=== PATIENT | female | born 1980 | race Caucasian/White ===

== ENCOUNTER 2017-01-08 20:03 | Emergency (ER) | payer MEDICAID ==
[~2017-01-08] VITALS: Ht 152.4 cm; Wt 73.3 kg
[~2017-01-08 20:03] MED LIST: PRENATAL; PROBIOTIC
[2017-01-08] MEDS ORDERED: SODIUM CHLORIDE 0.9% 1,000 ML IV ONE (22:51)
[2017-01-08 23:14] LABS: BASOPHILS % 0.5 % (0.0-2.0); EOSINOPHILS % 1.6 % (0.0-5.0); HEMATOCRIT. 30.7 % (36.0-48.0); HEMOGLOBIN. 10.3 g/dL (12.0-16.0); LYMPHOCYTES % 22.4 % (20.0-50.0); MEAN CORPUSCULAR HGB CONC 33.5 g/dL (31.0-37.0); MEAN CORPUSCULAR VOLUME 86.4 fL (81.0-99.0); MEAN PLATELET VOLUME 7.7 fl (7.4-10.4); MONOCYTES % 5.2 % (2.0-8.0); NEUTROPHILS % 70.3 % (40.0-76.0); PLATELET 276 x1000/uL (130-400); RED BLOOD CELL COUNT 3.55 mill/uL (4.2-5.4); RED CELL DISTRIBUTION WIDTH 12.6 % (11.6-14.6); WHITE BLOOD COUNT 15.3 x1000/uL (4.5-11.0)
[2017-01-08 23:14] LABS: CLARITY URINE CLEAR (CLEAR); COLOR URINE YELLOW (YELLOW); GLUCOSE URINE NEGATIVE (NEGATIVE); KETONES URINE NEGATIVE (NEGATIVE); LEUKOCYTE ESTERASE URINE 2+ (NEGATIVE); NITRITE URINE NEGATIVE (NEGATIVE); OCCULT BLOOD URINE 1+ (NEGATIVE); PROTEIN URINE NEGATIVE (NEGATIVE); UROBILINOGEN URINE 0.2 E.U./dL (0.2-1.0)
[2017-01-08] MEDS ORDERED: ACETAMINOPHEN 325MG TABLET PO ONE (23:15)
[2017-01-08 23:20] LABS: CHLORIDE 103 mEq/L (98-107); INDEX HEMOLYSI 1 (1-3); INDEX ICTERIC 1 (1-4); INDEX LIPEMIC 1 (1-3)
[2017-01-08 23:25] LABS: ALBUMIN 2.5 g/dL (3.4-5.0); ANION GAP 13; CALCIUM 8.2 mg/dL (8.5-10.1); CARBON DIOXIDE 24 mEq/L (21-32); UREA NITROGEN BLOOD 11 mg/dL (7-21)
[2017-01-08 23:32] LABS: BACTERIA URINE 1+; RBC URINE 0-2 /hpf (0-2); SQUAMOUS EPITHELIAL CELL URINE FEW /lpf (RARE/1+)
[2017-01-08 23:35] LABS: ALANINE AMINOTRANSFERASE 45 IU/L (13-61); eGFR 51 mL/min (>60)
[2017-01-08 23:43] LABS: B-HCG QUANTITATIVE 49593 mIU/mL (<3)
[2017-01-09 02:05] VITALS: BP 107/72
== END 2017-01-09 02:19 | disposition home or self-care (01) ==
LOC: ER 20:03
DX: O23.42 Unspecified infection of urinary tract in pregnancy, second trimester (principal); O46.8X2 Other antepartum hemorrhage, second trimester; Z3A.17 17 weeks gestation of pregnancy; Z88.5 Allergy status to narcotic agent; Z98.890 Other specified postprocedural states
CPT/HCPCS: 36415; 76805; 80053; 81001; 81025; 84702; 85025; 86850; 86900; 86901; 96360; 99285; Z7610; J7030

== ENCOUNTER 2017-01-20 20:22 | Emergency (ER) | payer MEDICAID ==
[~2017-01-20] VITALS: Ht 149.9 cm; Wt 68.5 kg
[2017-01-20] MEDS ORDERED: ACETAMINOPHEN 325MG TABLET PO ONE (22:45)
[2017-01-20] MEDS ORDERED: SODIUM CHLORIDE 0.9% 1,000 ML IV ONE (22:45)
[2017-01-20 23:00] LABS: CLARITY URINE CLEAR (CLEAR); COLOR URINE YELLOW (YELLOW); GLUCOSE URINE NEGATIVE (NEGATIVE); KETONES URINE NEGATIVE (NEGATIVE); LEUKOCYTE ESTERASE URINE TRACE (NEGATIVE); NITRITE URINE NEGATIVE (NEGATIVE); OCCULT BLOOD URINE NEGATIVE (NEGATIVE); PROTEIN URINE NEGATIVE (NEGATIVE); SPECIFIC GRAVITY URINE 1.009 (1.005-1.030); UROBILINOGEN URINE 0.2 E.U./dL (0.2-1.0)
[2017-01-20 23:02] LABS: BASOPHILS % 0.5 % (0.0-2.0); HEMATOCRIT. 30.7 % (36.0-48.0); HEMOGLOBIN. 10.3 g/dL (12.0-16.0); LYMPHOCYTES % 29.8 % (20.0-50.0); MEAN CORPUSCULAR HEMOGLOBIN 29.1 pg (28.0-32.0); MEAN CORPUSCULAR HGB CONC 33.5 g/dL (31.0-37.0); MEAN CORPUSCULAR VOLUME 86.9 fL (81.0-99.0); MEAN PLATELET VOLUME 7.3 fl (7.4-10.4); MONOCYTES % 7.7 % (2.0-8.0); PLATELET 283 x1000/uL (130-400); RED BLOOD CELL COUNT 3.53 mill/uL (4.2-5.4); RED CELL DISTRIBUTION WIDTH 12.7 % (11.6-14.6); WHITE BLOOD COUNT 11.3 x1000/uL (4.5-11.0)
[2017-01-20 23:07] LABS: CHLORIDE 105 mEq/L (98-107); INDEX HEMOLYSI 1 (1-3); INDEX ICTERIC 1 (1-4); INDEX LIPEMIC 1 (1-3)
[2017-01-20 23:08] LABS: CALCIUM 8.5 mg/dL (8.5-10.1)
[2017-01-20 23:11] LABS: ANION GAP 13; CARBON DIOXIDE 25 mEq/L (21-32); UREA NITROGEN BLOOD 8 mg/dL (7-21)
[2017-01-20 23:13] LABS: BACTERIA URINE TRACE; RBC URINE 0-2 /hpf (0-2); SQUAMOUS EPITHELIAL CELL URINE FEW /lpf (RARE/1+); WBC URINE 0-2 /hpf (0-2)
[2017-01-20 23:19] LABS: eGFR > 60 mL/min (>60)
[2017-01-20 23:29] LABS: B-HCG QUANTITATIVE 45736 mIU/mL (<3)
[2017-01-21 01:59] VITALS: BP 125/71
== END 2017-01-21 02:01 | disposition home or self-care (01) ==
LOC: ER 22:28
DX: O20.0 Threatened abortion (principal); Z3A.19 19 weeks gestation of pregnancy; Z88.3 Allergy status to other anti-infective agents; Z88.5 Allergy status to narcotic agent
CPT/HCPCS: 36415; 76805; 80048; 81001; 81025; 84702; 85025; 99285; Z7610; J7030

== ENCOUNTER 2017-02-15 11:10 | Observation (INO) | payer MEDICAID ==
[~2017-02-15] VITALS: Ht 152.4 cm; Wt 71.7 kg
[2017-02-15] MEDS ORDERED: LACTATED RINGERS 1,000 ML IV SCH (11:45)
[2017-02-15] MEDS ORDERED: ACETAMINOPHEN 500MG TABLET PO NR (11:45)
[2017-02-15] MEDS ORDERED: PREN1TAB22 (12:11)
[2017-02-15] MEDS ORDERED: MAGN400T26 (12:11)
[2017-02-15 12:37] LABS: CLARITY URINE CLEAR (CLEAR); COLOR URINE YELLOW (YELLOW); GLUCOSE URINE NEGATIVE (NEGATIVE); KETONES URINE NEGATIVE (NEGATIVE); LEUKOCYTE ESTERASE URINE TRACE (NEGATIVE); NITRITE URINE NEGATIVE (NEGATIVE); OCCULT BLOOD URINE NEGATIVE (NEGATIVE); PROTEIN URINE NEGATIVE (NEGATIVE); UROBILINOGEN URINE 0.2 E.U./dL (0.2-1.0)
[2017-02-15 12:59] LABS: SQUAMOUS EPITHELIAL CELL URINE 3+ /lpf (RARE/1+)
[2017-02-15 13:00] LABS: RBC URINE 0-2 /hpf (0-2)
[2017-02-15 13:01] LABS: BACTERIA URINE TRACE
[2017-02-15] MEDS ORDERED: CITRIC ACID/SODIUM CITRATE SOLN 30ML UDC PO NR (13:15)
[2017-02-15 13:53] LABS: BASOPHILS % 0.3 % (0.0-2.0); HEMATOCRIT. 28.1 % (36.0-48.0); HEMOGLOBIN. 9.5 g/dL (12.0-16.0); LYMPHOCYTES % 20.4 % (20.0-50.0); MEAN CORPUSCULAR HEMOGLOBIN 29.2 pg (28.0-32.0); MEAN CORPUSCULAR HGB CONC 33.8 g/dL (31.0-37.0); MEAN CORPUSCULAR VOLUME 86.4 fL (81.0-99.0); MEAN PLATELET VOLUME 7.9 fl (7.4-10.4); MONOCYTES % 7.2 % (2.0-8.0); NEUTROPHILS % 71.1 % (40.0-76.0); PLATELET 256 x1000/uL (130-400); RED BLOOD CELL COUNT 3.25 mill/uL (4.2-5.4); RED CELL DISTRIBUTION WIDTH 13.5 % (11.6-14.6); WHITE BLOOD COUNT 13.6 x1000/uL (4.5-11.0)
[2017-02-15 14:05] LABS: ALANINE AMINOTRANSFERASE 40 IU/L (13-61); ALBUMIN 2.4 g/dL (3.4-5.0); AMYLASE 107 IU/L (25-115); ANION GAP 12; CALCIUM 8.4 mg/dL (8.5-10.1); CARBON DIOXIDE 28 mEq/L (21-32); CHLORIDE 107 mEq/L (98-107); INDEX HEMOLYSI 1 (1-3); INDEX ICTERIC 1 (1-4); INDEX LIPEMIC 1 (1-3); LIPASE 149 IU/L (73-393); UREA NITROGEN BLOOD 6 mg/dL (7-21); eGFR > 60 mL/min (>60)
== END 2017-02-15 14:40 | disposition home or self-care (01) ==
LOC: L&D 11:10
PROVIDERS: ADMIT Obstetrics & Gynecology; ATTEND Obstetrics & Gynecology
DX: O26.892 Other specified pregnancy related conditions, second trimester (principal); R10.10 Upper abdominal pain, unspecified; Z3A.00 Weeks of gestation of pregnancy not specified
CPT/HCPCS: 36415; 80053; 81001; 82150; 83690; 85025; 99281; G0378; J7120; 96360; 96361

== ENCOUNTER 2017-03-24 14:48 | Observation (INO) | payer MEDICAID ==
[~2017-03-24] VITALS: Ht 152.4 cm; Wt 71.7 kg
[~2017-03-24 14:48] MED LIST changes: +MAGN400T26; +PREN1TAB22
[2017-03-24] MEDS ORDERED: ACETAMINOPHEN 500MG TABLET PO NR (15:30)
[2017-03-24] MEDS ORDERED: DEXT 5%/LR + PITOCIN 20UNITS/L 1,000 ML IV SCH (18:28)
[2017-03-24] MEDS ORDERED: LIDOCAINE HCL 1% 20ML VIAL (Pyxis) INJ INFIL SCH (18:30)
[2017-03-24] MEDS ORDERED: CARBOPROST TROMETHAMINE 250 MCG/ML AMPUL IM PRN (18:30)
[2017-03-24] MEDS ORDERED: ONDANSETRON HCL 4MG/2ML VIAL IV PRN (18:30)
[2017-03-24] MEDS ORDERED: BUTORPHANOL TARTRATE 2 MG/ML VIAL IV PRN (18:30)
[2017-03-24] MEDS ORDERED: METHYLERGONOVINE MALEATE 0.2 MG/ML IM PRN (18:30)
[2017-03-24] MEDS ORDERED: NALOXONE HCL 0.4 MG/ML 1ML VIAL IM PRN (18:30)
[2017-03-24] MEDS ORDERED: BETAMETHASONE ACET/BETAMET 30 MG/5 ML VIAL IM NR ×2 (18:30→19:15)
[2017-03-24] MEDS ORDERED: DEXT 5%/LACTATED RINGERS 1,000 ML IV SCH (19:00)
[2017-03-24 19:21] LABS: CLARITY URINE CLEAR (CLEAR); COLOR URINE YELLOW (YELLOW); GLUCOSE URINE NEGATIVE (NEGATIVE); KETONES URINE NEGATIVE (NEGATIVE); LEUKOCYTE ESTERASE URINE TRACE (NEGATIVE); NITRITE URINE NEGATIVE (NEGATIVE); OCCULT BLOOD URINE TRACE (NEGATIVE); PH URINE 6.5 (4.5-8.0); PROTEIN URINE NEGATIVE (NEGATIVE); SPECIFIC GRAVITY URINE 1.005 (1.005-1.030); UROBILINOGEN URINE 0.2 E.U./dL (0.2-1.0)
[2017-03-24 19:28] LABS: BASOPHILS % 0.2 % (0.0-2.0); EOSINOPHILS % 0.9 % (0.0-5.0); HEMOGLOBIN. 9.6 g/dL (12.0-16.0); MEAN CORPUSCULAR HEMOGLOBIN 29.3 pg (28.0-32.0); MEAN CORPUSCULAR VOLUME 85.7 fL (81.0-99.0); MEAN PLATELET VOLUME 8.2 fl (7.4-10.4); MONOCYTES % 6.2 % (2.0-8.0); NEUTROPHILS % 70.7 % (40.0-76.0); PLATELET 236 x1000/uL (130-400); RED BLOOD CELL COUNT 3.27 mill/uL (4.2-5.4); RED CELL DISTRIBUTION WIDTH 13.1 % (11.6-14.6)
[2017-03-24 19:31] LABS: INR 0.9; PARTIAL THROMBOPLASTIN TIME 25.6 sec (24.0-34.0); PROTHROMBIN TIME 9.7 sec
[2017-03-24] MEDS: LACTATED RINGERS 1,000 ML IV SCH (19:35)
[2017-03-24 19:58] LABS: *AMPHETAMINES SCREEN URINE NEGATIVE (NEGATIVE); *BARBITURATES SCREEN URINE NEGATIVE (NEGATIVE); *BENZODIAZEPINES SCREEN URINE NEGATIVE (NEGATIVE); *COCAINE SCREEN URINE NEGATIVE (NEGATIVE); CANNABINOID URINE SCREEN NEGATIVE (NEGATIVE); METHADONE URINE SCREEN NEGATIVE (NEGATIVE); OPIATES URINE SCREEN NEGATIVE (NEGATIVE); PHENCYCLIDINE URINE SCREEN NEGATIVE (NEGATIVE)
[2017-03-24] MEDS ORDERED: ACETAMINOPHEN 325MG TABLET PO ONE (20:00)
[2017-03-24 20:19] LABS: HEPATITIS B SURFACE ANTIGEN NEGATIVE; RUBELLA IGG 23.2 IU/mL (4.99-10)
[2017-03-24] MEDS: TERBUTALINE SULFATE 1MG/ML VIAL SUBCUT PRN ×2 (21:00→23:43)
[2017-03-24] MEDS: AMPICILLIN 2,000 MG in SODIUM CHLORIDE 0.9% 100 ML IV SCH (21:01)
[2017-03-24] MEDS ORDERED: ERYTHROMYCIN 250MG TABLET PO SCH (22:00)
[2017-03-24] MEDS ORDERED: AMOXICILLIN 250MG CAPSULE PO SCH (22:00)
[2017-03-25] MEDS: ACETAMINOPHEN 325MG TABLET PO PRN ×2 (00:20→04:28)
[2017-03-25] MEDS: LACTATED RINGERS 1,000 ML IV SCH ×3 (01:31→17:35)
[2017-03-25] MEDS: AMPICILLIN 2,000 MG in SODIUM CHLORIDE 0.9% 100 ML IV SCH ×4 (03:53→21:05)
[2017-03-25] MEDS: PRENATAL VIT/FE FUMARATE/FA TABLET PO SCH (07:59)
[2017-03-25] MEDS ORDERED: DOCUSATE SODIUM 100MG CAPSULE PO SCH (09:00)
[2017-03-25] MEDS: ERYTHROMYCIN LACTOBIONATE 250 MG in SODIUM CHLORIDE 0.9% 100 ML IV SCH ×3 (09:59→22:19)
[2017-03-25] MEDS ORDERED: ACETAMINOPHEN 500MG TABLET PO PRN (14:00)
[2017-03-25] MEDS: MAGNESIUM 20 G PREMIX (L & D) 500 ML IV SCH (16:47)
[2017-03-26] MEDS: MAGNESIUM 20 G PREMIX (L & D) 500 ML IV SCH ×3 (00:11→20:09)
[2017-03-26] MEDS: AMPICILLIN 2,000 MG in SODIUM CHLORIDE 0.9% 100 ML IV SCH ×4 (02:36→21:36)
[2017-03-26] MEDS: ERYTHROMYCIN LACTOBIONATE 250 MG in SODIUM CHLORIDE 0.9% 100 ML IV SCH ×4 (03:49→22:17)
[2017-03-26] MEDS ORDERED: LACTATED RINGERS 1,000 ML IV SCH (05:00)
[2017-03-26 05:28] LABS: HEMATOCRIT. 27.1 % (36.0-48.0); HEMOGLOBIN. 9.4 g/dL (12.0-16.0); MEAN CORPUSCULAR HEMOGLOBIN 30.3 pg (28.0-32.0); MEAN CORPUSCULAR VOLUME 87.2 fL (81.0-99.0); MEAN PLATELET VOLUME 8.2 fl (7.4-10.4); PLATELET 244 x1000/uL (130-400); RED BLOOD CELL COUNT 3.11 mill/uL (4.2-5.4)
[2017-03-26 06:13] LABS: CARBON DIOXIDE 24 mEq/L (21-32); CHLORIDE 108 mEq/L (98-107)
[2017-03-26 10:05] LABS: PLATELET ESTIMATE NORMAL
[2017-03-26] MEDS: PRENATAL VIT/FE FUMARATE/FA TABLET PO SCH (10:29)
[2017-03-26 20:09] VITALS: BP 107/67
[2017-03-27] MEDS ORDERED: AMOXICILLIN 250MG CAPSULE PO SCH (06:00)
[2017-03-27] MEDS ORDERED: ERYTHROMYCIN 250MG TABLET PO SCH (06:00)
== END 2017-03-27 09:15 | disposition short-term general hospital (02) ==
LOC: L&D 14:48
PROVIDERS: ADMIT Obstetrics & Gynecology; ATTEND Obstetrics & Gynecology
DX: O42.912 Preterm premature rupture of membranes, unspecified as to length of time between rupture and onset of labor, second trimester (principal); O99.112 Other diseases of the blood and blood-forming organs and certain disorders involving the immune mechanism complicating pregnancy, second trimester; D72.829 Elevated white blood cell count, unspecified; O99.012 Anemia complicating pregnancy, second trimester; O26.832 Pregnancy related renal disease, second trimester; Q61.3 Polycystic kidney, unspecified; Z3A.27 27 weeks gestation of pregnancy
CPT/HCPCS: 36415; 76805; 76815; 76818; 80053; 80305; 81001; 83735; 85025; 85610; 85730; 86592; 86703; 86762; 86850; 86900; 86901; 87340; 96361; 96365; 96366; 96367; 96368; 96372; 96375; 99281; G0378; J0290; J0702; J1364; J3105; J3475; J7030; J7120; J7121; 96360; J7050; A4315

== ENCOUNTER 2017-04-16 08:17 | Emergency (ER) | payer MEDICAID ==
[~2017-04-16] VITALS: Ht 152.4 cm; Wt 72.0 kg
[2017-04-16] MEDS ORDERED: IBUPROFEN 600MG TABLET PO ONE (09:00)
[2017-04-16 10:15] VITALS: BP 134/76
== END 2017-04-16 10:45 | disposition home or self-care (01) ==
LOC: ER 08:18
DX: J06.9 Acute upper respiratory infection, unspecified (principal); G89.18 Other acute postprocedural pain; I10 Essential (primary) hypertension; Z98.890 Other specified postprocedural states; Z88.3 Allergy status to other anti-infective agents; Z88.5 Allergy status to narcotic agent
CPT/HCPCS: 71010; 99283; Z7610

== ENCOUNTER 2017-12-07 11:11 | Emergency (ER) | payer MEDICAID ==
[~2017-12-07] VITALS: Ht 162.6 cm; Wt 138.0 kg
[2017-12-07 11:54] VITALS: BP 125/87
[2017-12-07] MEDS ORDERED: LIDOCAINE HCL 1% 20ML VIAL (Pyxis) INJ MC ONE (13:45)
[2017-12-07] MEDS ORDERED: BACITRACIN ZINC OINT UDPKT TOP ONE (13:45)
== END 2017-12-07 16:21 | disposition home or self-care (01) ==
LOC: ER 11:11
DX: L03.011 Cellulitis of right finger (principal); Z88.5 Allergy status to narcotic agent
CPT/HCPCS: 10060; 81025; 99283; J3490; X7700; Z7610

== ENCOUNTER 2017-12-27 21:00 | Emergency (ER) | payer MEDICAID ==
[~2017-12-27] VITALS: Ht 152.4 cm; Wt 70.0 kg
[2017-12-28] MEDS ORDERED: ACETAMINOPHEN 325MG TABLET PO STA (00:30)
[2017-12-28 00:54] LABS: CLARITY URINE CLEAR (CLEAR); COLOR URINE YELLOW (YELLOW); KETONES URINE NEGATIVE (NEGATIVE); LEUKOCYTE ESTERASE URINE NEGATIVE (NEGATIVE); NITRITE URINE NEGATIVE (NEGATIVE); OCCULT BLOOD URINE 3+ (NEGATIVE); PH URINE 6.5 (4.5-8.0); PROTEIN URINE NEGATIVE (NEGATIVE); UROBILINOGEN URINE 0.2 E.U./dL (0.2-1.0)
[2017-12-28 03:34] LABS: EOSINOPHILS % 2.1 % (0.0-5.0); HEMATOCRIT. 35.9 % (36.0-48.0); LYMPHOCYTES % 36.7 % (20.0-50.0); MEAN CORPUSCULAR HEMOGLOBIN 28.7 pg (28.0-32.0); MEAN CORPUSCULAR VOLUME 85.8 fL (81.0-99.0); MEAN PLATELET VOLUME 7.8 fl (7.4-10.4); MONOCYTES % 6.6 % (2.0-8.0); NEUTROPHILS % 53.6 % (40.0-76.0); PLATELET 308 x1000/uL (130-400); RED BLOOD CELL COUNT 4.18 mill/uL (4.2-5.4); RED CELL DISTRIBUTION WIDTH 12.4 % (11.6-14.6)
[2017-12-28 03:41] LABS: CHLORIDE 109 mEq/L (98-107)
[2017-12-28 04:41] VITALS: BP 127/70
== END 2017-12-28 04:44 | disposition home or self-care (01) ==
LOC: ER 21:00
DX: K80.20 Calculus of gallbladder without cholecystitis without obstruction (principal); M25.511 Pain in right shoulder; M54.2 Cervicalgia; M79.601 Pain in right arm; Z88.5 Allergy status to narcotic agent; Z88.8 Allergy status to other drugs, medicaments and biological substances
CPT/HCPCS: 36415; 71045; 76705; 80053; 81003; 81025; 83690; 85025; 93005; 99285